=== PATIENT | male | born 1985 | race Hispanic/Latino ===

== ENCOUNTER 2019-06-14 10:57 | Emergency (ER) | payer BC | END 2019-06-14 12:50 | disposition home or self-care (01) | LOC: ERS 10:57 | DX: K02.9 Dental caries, unspecified (principal); J45.909 Unspecified asthma, uncomplicated | CPT/HCPCS: 99282 ==

== ENCOUNTER 2019-06-17 11:57 | Emergency (ER) | payer BC ==
--- NOTE | 2019-06-17 12:58 | RAD ---
RADIOGRAPH RIGHT ANKLE 3 VIEWS: Date: 06/17/19 HISTORY: 33-year-old male with right ankle pain. No recent trauma. COMPARISON: 01/30/12. FINDINGS: Again noted are the long metallic plate fixated to the fibula from distal diaphysis to the lateral ma lleolus by multiple screws, lag screw at the lateral malleolus, and metallic plate with two screws at medial aspect of distal tibial metaphysis. That medial malleolar fracture lucency is no longer prese nt. There has been no other major interval change. Ankle mortise is congruent. Talar dome is maintain ed. Mild hypertrophic degenerative changes at the inferolateral aspect of the ankle mortise. Alignmen t is anatomical. IMPRESSION: 1. Status post old open reduction and internal fixation of old medial and lateral malleolar fracture s. 2. No acute findings. POS: [facility]
== END 2019-06-17 14:15 | disposition home or self-care (01) ==
LOC: ERS 11:57
DX: M25.571 Pain in right ankle and joints of right foot (principal); J45.909 Unspecified asthma, uncomplicated; Z79.2 Long term (current) use of antibiotics

== ENCOUNTER 2019-09-07 22:38 | Emergency (ER) | payer BC | END 2019-09-07 23:21 | disposition home or self-care (01) | LOC: ERS 22:38 | DX: M25.571 Pain in right ankle and joints of right foot (principal); J45.909 Unspecified asthma, uncomplicated | CPT/HCPCS: 99283 ==

== ENCOUNTER 2019-11-07 14:42 | Emergency (ER) | payer BC | END 2019-11-07 15:10 | disposition home or self-care (01) | LOC: ERS 14:42 | DX: J11.1 Influenza due to unidentified influenza virus with other respiratory manifestations (principal); J45.909 Unspecified asthma, uncomplicated | CPT/HCPCS: 87804; 99283 ==